=== PATIENT | female | born 1985 | race African-American/Black ===

== ENCOUNTER 2022-10-02 22:32 | Emergency (ER) | payer SELFPAY ==
[2022-10-03] MEDS ORDERED: Ibuprofen 800 MG TAB ONE (00:57)
== END 2022-10-03 01:12 | disposition home or self-care (01) ==
LOC: ERS 22:32
DX: J06.9 Acute upper respiratory infection, unspecified (principal); F17.210 Nicotine dependence, cigarettes, uncomplicated
CPT/HCPCS: 71045; 87804